=== PATIENT | female | born 1970 | race Caucasian/White ===

== ENCOUNTER 2016-04-18 10:03 | Day surgery (SDC) | payer BC ==
[2016-04-06 13:41] VITALS: BMI 56.0
[2016-04-17 12:45] VITALS: BMI 56.0
--- NOTE | 2016-04-17 14:10 | HISTORY & PHYSICAL EXAMINATION ---
DATE OF ADMISSION: 04/18/2016 HISTORY OF PRESENT ILLNESS: A 46-year-old female presents for preop history and physical requesting excision of hardware surgery. Pain is located over the lateral aspect of her foot and they were quite bothersome over the right foot. She first noticed the condition several months after surgery. She denies any associated other signs or symptoms. Past treatments have included surgery consisting of a Kitner Rodriguez calcaneal osteotomy and posterior tibial tendon repair surgery. She is having no problems over the operative area other than the rash over medial aspect of her foot; however, it has been recommended due to lifting the plate and the CT scan showing incorporation of the graft and removal of the hardware at this time. At the recommendation of the surgeon and CT scan showing good healing, she elects to proceed with hardware excision lateral aspect on the right foot. PAST SURGICAL HISTORY: Back surgery, foot surgery, wisdom teeth removal, knee surgery, tonsillectomy, wrist surgery. PAST MEDICAL HISTORY: Depression, diabetes mellitus, TMJ disease, back problems, fibromyalgia, acid reflux, asthma. MEDICATIONS: methylprogesterone, Singulair, Claritin, Glucophage, Benadryl, Medrol, and Percocet. ALLERGIES: ERYTHROMYCIN, CLINDAMYCIN, NONSTEROIDALS, PENICILLIN, NUTRASWEET, SEASONAL HAY FEVER. FAMILY HISTORY: Arthritis and cancer. SOCIAL HISTORY: The patient denies smoking, alcohol use, illicit drug use, and STDs. REVIEW OF SYSTEMS: Unremarkable except chief complaint. PHYSICAL EXAMINATION: CONSTITUTIONAL: The patient appears well developed and well nourished with good attention, body grooming, and habitus. She is obese. HEAD AND FACE: Head is normocephalic. EYES: Conjunctival and pupillary reaction to light and accommodation normal. EARS, NOSE, MOUTH, AND THROAT: Unremarkable. NECK: Neck is supple. Trachea is midline. CARDIOVASCULAR: Normal S1, S2, without any murmur, gallops, rubs, or clicks noted. RESPIRATORY: Chest is symmetric. No scars are visible. No port or pacemaker. LUNGS: Clear to auscultation bilaterally and equal. GASTROINTESTINAL: Abdominal organs, bladder, and kidney show no masses, tenderness, or rigidity. LYMPHATIC: No popliteal, inguinal, or supraclavicular lymphadenopathy noted. LOWER EXTREMITY: DP palpable. PT palpable. There is no evidence of edema which is mild over the operative sites. DERMATOLOGIC: No rashes present on the medial incisional site as previously noted, cicatrix are well healed medial and lateral aspect of her foot with no hypertrophy of the tissue and no keloid formation. NEUROLOGIC: Touch, pin, vibratory and proprioception sensations are normal for a postoperative state. MUSCULOSKELETAL: Muscle tone is normal. Muscle strength is 5/5 all groups tested. Inspection palpation of bones, joints, muscles shows forefoot in good alignment to the rearfoot. Examination of posterior tibial tendon reveals no pain to palpation. Heel toe rise within normal limits. Pain resolved over the right. IMAGING DATA: CT scan on 03/02/2016 shows lateral cortical plate transfixed with screws over the anterior calcaneus not completely flushed with the bone, most pronounced posteriorly with 9 mm distraction tip of the most posterior calcaneal screw is seated within the bone. Position of the hardware remains unchanged for immediate postoperative study. No abnormal lucency is noted. IMPRESSION: 1. Posterior tibial tendonitis on the right status post surgical correction resolved. 2. History of Kitner Rodriguez calcaneal osteotomy and posterior tibial tendon repair, left lower extremity on 09/10/2008. 3. Status post Kitner Rodriguez calcaneal osteotomy and posterior tibial tendon repair on the right, proximal interphalangeal joint arthroplasty with derotational skin plasty, right fifth distal interphalangeal joint arthroplasty, and right fourth with arthrodesis on 08/24/2015. PLAN: Surgical procedures to be performed: Excision of hardware, right foot. This will be performed under general anesthesia as an outpatient at the hospital. The procedure, risks and complications were fully reviewed with the patient. Consent form, foot diagram and illustration reviewed in all there entirety and all the patient's questions were answered. Complications were discussed in detail with the patient including pain, infection, swelling that may or may not be excessive, pins and needles feeling, numbness, metatarsalgia, excessive bleeding, delay or nonhealing bone, delay or nonhealing of skin, enlarged scar, failure of the procedure, reoccurrence or worsening of condition which may or may not require further surgery, adverse reaction to anesthesia, allergic reaction to suture or other implant material, loss of toe, foot, or leg, flail toe, stiff toe, short toe, elevated toe, transfer lesion or callus, peripheral neurovascular complications such as phlebitis, damage to nerves or vascular structures, severe or chronic pain, chronic nerve pain or damage, and general medical complications. The patient will be required to be in a Cam walker for a minimum of 2-4 weeks and not return to sneaker for 4-6 weeks depending on postop edema. The patient is aware this is an elective type procedure and I recommend a second opinion. The patient stated they understood. Consent form was signed with a copy of the foot diagram and illustration given to the patient. Verbal and written postop instructions were given. At the time of the preoperative appointment, prescriptions for Percocet and Bactrim were dispensed. [facility]
[~2016-04-18] VITALS: Ht 172.7 cm; Wt 168.2 kg
[~2016-04-18 10:03] MED LIST: ALBU1AER9 INH; BUPIVACAINE/EPINEPHRINE 0.25% 1:200,000 30 ML VIAL ONE; BUPR100T8 PO; CEFAZOLIN 3000 MG/65 ML D5W IV SCH; CLR10 PO; DEXAMETHASONE SOD INJ 4 MG/ML VIAL ONE; FLUT0.15 INTNAS; GLIP-199 PO; HYDR-5688 PO; HYDR25TA4 PO; LACTATED RINGER'S 1000ML 1,000 ML IV SCH; METF1000 PO; MONT1TAB3 PO; PSEU60TA80 PO; REPA1TAB42 PO; SCOPOLAMINE 1.5 MG TDSY TD SCH; SODIUM CHLORIDE 0.9% 1000ML 1,000 ML IV SCH; TRAZ100T29 PO; ZNTT/150 PO
--- NOTE | 2016-04-18 10:24 | History & Physical Bridge Note ---
H&P Re-Evaluation Bridge Note: I have examined the patient, reviewed the History & Physical and in the interval since the performance of the History & Physical I have noted the following changes of clinical significance: No changes noted
--- NOTE | 2016-04-18 10:26 | Discharge Instructions ---
Discharge Instructions Visit Reason for Visit: Right Foot Mechanical Complication Internal Fixati Discharge Discharge Diagnosis / Problem: same as dx Discharge Goals Goal(s): Therapeutic intervention Activity Recommendations Activity Limitations: as noted below Medications: * Resume previous medications unless instructed by your surgeon. * Take your medications as prescribed. Call our office ([phone]) at any time, if you experience severe pain that does not subside shortly after taking your pain medication. Activity: * You may walk on your operated foot/ankle using the surgical shoe or cast/splint. Do not put any weight on your operated foot/ankle without wearing the surgical shoe or cast sandal.. Special Care: * Keep your bandage clean and dry. Do not remove your bandage unless otherwise instructed. A small amount of blood may appear on the bandage over the surgical site. Call our office ([phone]) if you bandage becomes blood-soaked or wet. * Elevate your operated foot/ankle on pillows, above the level of your heart, as often as possible during the first 2-3 days following surgery. Keep your knee flexed slightly with a pillow under your knee when you elevate your foot/ankle. * Apply a ice bag to your foot/ankle over the operative site for 20-30 minutes out of each hour while you are awake. Do not allow the ice bag to directly contact bare skin. * Avoid bumping or handling any pins visible in your toes. If any pin feels or appears loose, call the office ([phone]). * Take your oral temperature in the morning and at bedtime. Call our office ([phone]) if your temperature rises above 101 degrees Fahrenheit. Call your surgeon's office at ([phone]) for any problems or concerns such as excessive bleeding and/or pain unrelieved by your prescribed pain medications. If you have any questions, please do not hesitate to ask them. Avoid all tobacco products. If you need help to stop smoking, call [place]'s FREE QUITLINE at . This is a free call. Follow-up: Follow-up with Dr. Chery Anesthesia . Post Anesthesia Instructions: If you have had General Anesthesia or IV Sedation: * Do not drive today. * Resume driving when surgeon permits. * Do not make important decisions or sign legal documents today. * Call surgeon for: 1. Temperature elevations greater than 101 degrees F. 2. Uncontrollable pain. 3. Excessive bleeding. 4. Persistent nausea and vomiting. 5. Medication intolerance (nausea, vomiting or rash). * For nausea and vomiting use only clear liquids such as: tea, soda, bouillon until nausea subsides, then gradually increase diet as tolerated. * If you have any concerns or questions, call your surgeon's office. If physician is unavailable and it is an emergency, call 911 or go to the nearest emergency room. . Diet Recommendations Recommended Home Diet: resume previous diet Medical Emergencies . Who to Call and When: Medical Emergencies: If at any time you feel your situation is an emergency, please call 911 immediately. . Non-Emergent Contact . . "Provider Documentation" section prepared by Zahraa Monroe.
[2016-04-18 10:45] LABS: HEMATOCRIT 42.6 % (37-47); MEAN CORPUSCULAR HEMOGLOBIN 28.5 pg (25-34); MEAN PLATELET VOLUME 10.3 fL (7.4-10.4); PLATELET COUNT 175 K/uL (130-400); RED BLOOD COUNT 5.01 M/uL (4.2-5.4); WHITE BLOOD COUNT 7.85 K/uL (4.8-10.8)
[2016-04-18 10:47] VITALS: BP 135/86; PULSE 78; TEMP 36.7; O2SAT 96; Ht 172.7 cm; Wt 168.2 kg
[2016-04-18 10:47] LABS: MEAN CORPUSCULAR HGB CONC 33.6 g/dl (32-36)
[2016-04-18 11:08] LABS: BUN/CREATININE RATIO 11.9 (10-20); CALCIUM 8.8 mg/dl (8.5-10.1); CREATININE 0.84 mg/dl (0.60-1.20); POTASSIUM 3.7 mmol/L (3.5-5.1)
[2016-04-18] MEDS ORDERED: FENTANYL CITRATE INJ 50 MCG/1 ML 2 ML VIAL ONE (13:35)
[2016-04-18] MEDS ORDERED: BUPIVACAINE 0.5% INJ INJ ONE (13:39)
[2016-04-18] MEDS ORDERED: EpHEDrine SULFATE INJ 50 MG/ML AMP IV PRN (13:45)
[2016-04-18] MEDS ORDERED: FENTANYL CITRATE INJ 50 MCG/1 ML 2 ML VIAL IV PRN (13:45)
[2016-04-18] MEDS ORDERED: ONDANSETRON INJ 2 MG/ML 2 ML VIAL IV PRN (13:45)
[2016-04-18] MEDS ORDERED: ATROPINE SULFATE 0.1 MG/ML 5ML SYR IV PRN (13:45)
[2016-04-18] MEDS ORDERED: PROMETHAZINE HCL INJ 6.25 MG in SODIUM CHLORIDE 0.9% 50ML 50 ML IV PRN (13:45)
--- NOTE | 2016-04-18 14:15 | OPERATIVE REPORT ---
DATE OF OPERATION: 04/18/2016 SURGEON: Dr. Chery. CUSTOMER SUCCESS DIRECTOR: None. PREOPERATIVE DIAGNOSIS: Status post Kitner Rodriguez calcaneal osteotomy with tendon repair 08/24/2015 with retained fixation. POSTOPERATIVE DIAGNOSIS: Same. PROCEDURE: Excision of hardware, right foot, x5. ANESTHESIA: General with local field block 0.5% Marcaine plain, total 20 mL. HEMOSTASIS: Pneumatic calf tourniquet inflated to a level of 250 mmHg for a total tourniquet time of 23 minutes. MATERIALS: 2-0 and 3-0 Vicryl, 4-0 nylon. INJECTABLES: None. COMPLICATIONS: None. CONDITION: The patient tolerated the procedure and anesthesia well without complications, transported to the recovery room with vital signs stable and neurovascular status intact. PROCEDURE IN DETAIL: The patient was brought to the OR and placed on the OR table in supine position. Upon completion of general anesthesia by the anesthesia department, a well-padded tourniquet was applied to the right lower extremity and a local field block was performed with 20 mL 0.5% Marcaine plain. The foot was scrubbed, prepped and draped in the usual aseptic fashion. Attention was directed dorsolaterally, where using the fluoroscan, the previous hardware was identified. An incision directly over this area over the old incision was made. Dissection was carried down to the level of the anterior calcaneus with care to preserve all neurovascular structures. The 4 screws and a plate were removed. The wound was copiously lavaged with normal saline. Closure began in the deep structures using 2-0 Vicryl in a simple interrupted fashion. Superficial deep structures were closed using 3-0 Vicryl in a box stitch technique. Skin margins were closed using 4-0 nylon in a simple interrupted fashion. Pneumatic ankle tourniquet was released. Normal adequate summers digits 1 through 5. The patient tolerated the procedure and anesthesia well without complications, transported to the recovery room with vital signs stable and neurovascular status intact. I attest to the content of the Intraoperative Record and any orders documented therein. Any exceptio ns are noted below.
[2016-04-18 14:22] VITALS: BP 122/74; PULSE 67; TEMP 36.6; O2SAT 100
--- NOTE | 2016-04-18 14:26 | Anesthesiology Progress Note ---
Anesthesia Post Op Note Date & Time Apr 18, 2016 at 14:26 Vital Signs Pain Intensity: 3 Vital Signs Past 12 Hours Date Time Temp Pulse Resp B/P Pulse Ox O2 Delivery O2 Flow Rate FiO2 04/18/16 14:10 36.0 62 20 145/92 100 Room Air 04/18/16 14:00 70 12 150/89 100 Room Air 04/18/16 13:50 76 16 145/89 100 Mask 10 04/18/16 13:40 79 13 140/95 100 Mask 10 04/18/16 13:31 36.0 93 18 135/104 100 Mask 10 04/18/16 10:47 36.7 78 20 135/86 96 Room Air Notes Mental Status: alert / awake / arousable, participated in evaluation Pt Amnestic to Procedure: Yes Nausea / Vomiting: adequately controlled Pain: adequately controlled Airway Patency, RR, SpO2: stable & adequate BP & HR: stable & adequate Hydration State: stable & adequate Anesthetic Complications: no major complications apparent
--- NOTE | 2016-04-18 14:54 | DIAGNOSTIC IMAGING REPORT ---
RIGHT FOOT 2 VIEWS CLINICAL HISTORY: REMOVAL IMPLANT DEEP RT FOOT Right Fluoroscopy time: 9 seconds FINDINGS: 2 fluoroscopic spot images of the right foot were submitted. The patient is status post removal of the lateral calcaneal plate and screws. IMPRESSION: Fluoroscopy provided for removal of a calcaneal metallic plate and screws. Electronically signed by: Eder Russo M.D. 04/18/2016 2:53 PM Dictated Date/Time: 04/18/2016 2:52 PM
[2016-04-18 14:55] VITALS: BP 146/85; PULSE 72; TEMP 36.6; O2SAT 98
[2016-04-18 15:30] VITALS: BP 149/85; PULSE 81; TEMP 36.7; O2SAT 98
[2016-04-18] MEDS ORDERED: CHECK SCOPOLAMINE PATCH PLACEMENT SCH (16:00)
== END 2016-04-18 15:40 | disposition home or self-care (01) ==
LOC: C.ACU 10:03
PROVIDERS: ATTEND Podiatrist Foot & Ankle Surgery
DX: T84.84XA Pain due to internal orthopedic prosthetic devices, implants and grafts, initial encounter (principal); Y83.1 Surgical operation with implant of artificial internal device as the cause of abnormal reaction of the patient, or of later complication, without mention of misadventure at the time of the procedure; Z98.890 Other specified postprocedural states; F32.9 Major depressive disorder, single episode, unspecified; E11.9 Type 2 diabetes mellitus without complications; K21.9 Gastro-esophageal reflux disease without esophagitis; M79.7 Fibromyalgia; Z88.0 Allergy status to penicillin; Z88.5 Allergy status to narcotic agent; Z88.8 Allergy status to other drugs, medicaments and biological substances

== ENCOUNTER → 2017-04-03 | Outpatient (CLI) | payer OTHER ==
[~2017-04-03] MED LIST changes: -BUPIVACAINE/EPINEPHRINE 0.25% 1:200,000 30 ML VIAL ONE; -CEFAZOLIN 3000 MG/65 ML D5W IV SCH; -DEXAMETHASONE SOD INJ 4 MG/ML VIAL ONE; -LACTATED RINGER'S 1000ML 1,000 ML IV SCH; +REPA1TAB40 PO; -REPA1TAB42 PO; -SCOPOLAMINE 1.5 MG TDSY TD SCH; -SODIUM CHLORIDE 0.9% 1000ML 1,000 ML IV SCH
--- NOTE | 2017-04-04 11:43 | CODING QUERY NO DIAGNOSIS ---
TREATMENT RENDERED WITHOUT A DIAGNOSIS 72 To promote full compliance with coding requirements relating to patient care, physician participation is requested in all cases of child psychometrist uncertainty. Please assist us with providing a diagnosis/symptom for the test(s) below: A diagnosis/symptom was not documented on your Order. A valid diagnosis/symptom is required to bill all insurances. Please remember that we are unable to code a diagnosis of rule out, probable, possible, questionable, or suspected. DOS 04/03/17 Tests that require a diagnosis: * BX LEFT FOOT DIAGNOSIS: *ON YOUR ORDER YOU HAVE DX CODE B70.8, THIS IS AN INVALID CODE, PLEASE ADD CORRECT CODE Provider Signature: Date: Thank you Erica Howard [facility] Information Management Once completed, please kindly fax back to [phone] For questions please call [phone]
== END | disposition home or self-care (01) ==
LOC: C.PATHSPEC 17:45
PROVIDERS: ATTEND Podiatrist Foot & Ankle Surgery
DX: B07.9 Viral wart, unspecified (principal)

== ENCOUNTER → 2017-05-30 | Outpatient (CLI) | payer OTHER ==
[~2017-05-30] MED LIST changes: +RANI150T85 PO; -ZNTT/150 PO
== END | disposition home or self-care (01) ==
LOC: C.LABSPEC 17:11
PROVIDERS: ATTEND Podiatrist Foot & Ankle Surgery
DX: B35.1 Tinea unguium (principal)